=== PATIENT | male | born 1970 | race Caucasian/White ===

== ENCOUNTER 2020-03-26 05:37 | Observation (INO) ==
--- NOTE | 2020-03-26 06:02 | DR.CP ---
HPI Time Seen Time Seen by Provider: 03/26/20 06:01 PCP Primary Care Physician: KENNY HPI Comment HPI Comment: PATIENT IS 49YR OLD MALE IN ER WITH CHEST SHARP IINTERMITTENT LEFT SIDED CHEST PAIN `THAT STARTED THIS AM. PAIN RADIATES TO THE BACK. NOW 3/10 PA WAS HIGHER AT WORK. NO FEVER OR CHEST WALL SYMTOMS. DID NOT TAKE MEDICATION FOR PAIN. COUGHING, NON PRODUCTIVE WITH SLIGHT CONGESTION. DENIES TRAUMA OR DYSURIA. DENIES SIMILAR PAIN IN THE PAST. PAIN ASSOCIATED WITH SOB AND INCEASES WITH EXERTION AND IMPROVE WITH REST. PATIENT DENIES USE OF TOBACCO. Complaint Chief Complaint Doctor Comments: CHEST PAIN. Chief Complaint:: PT AMBULATORY IN ED WITH C/O CHEST PAIN. PT STATES PAIN IS BEHIND LEFT BREAST, SHARP AND COMES AND GOES. PT STATES PAIN IS WORSE ON MOVEMENT AND INHALATION. COVID-19 Coronavirus risk:travel/contact w/high risk person: Yes Has patient experienced Coronavirus symptoms: Yes Coronavirus symptoms experienced: Coughing and Shortness of Breath Reviewed Nurses Notes Review: Yes Source History Provided: Patient Mode of Arrival Mode of Arrival: Ambulatory Timing Onset of Chief Complaint: 03/26/20 Came on: Suddenly Pain: Present Now Duration Duration: Intermittent Duration: Hours Location Location of Chest Pain: Left and Chest Chest Pain Radiation Location: Back Context Onset: At rest Cardiac Risk Factors: None PE Risk Factors: None History of: None Prehospital Care: None Quality Quality: Sharp Severity Severity: Moderate Modifying Factors Worsens: Exertion Impoves: Rest Associated Signs and Symptoms Associated Signs and Symptoms: Shortness of Breath PMH PMH Past Medical History: Yes Past Medical History: Asthma Past Surgical History: Yes Surgical History: Ortho Surgery and Lithotripsy Past Surgical History Comment: LEFT SHOULDER Family History History of Family Medical Conditions: Yes Family Medical History: Hypertension Family Medical History Comment: COPD Social History Does patient currently use any type of tobacco product: Yes Have you used tobacco products in the last 12 months: Yes Type of Tobacco Use: Smokeless Does any household member use tobacco: No Alcohol Use: None Do you use any recreational Drugs:: No Lives With: Significant Other Lives Where: Home Travel Risk Coronavirus risk:travel/contact w/high risk person: Yes Has patient experienced Coronavirus symptoms: Yes Coronavirus symptoms experienced: Coughing and Shortness of Breath Infectious screening In the last 2 months have you had wt loss of >10#?: NO Have you had fever, night sweats or hemotysis?: No Have you traveled outside the country in the last 6 months?: No Isolation: Droplet ROS Review of Systems Constitutional: See HPI, Weakness and Fatigue; negative Fever Eyes: No Symptoms Reported and See HPI; negative Blurred Vision and Diplopia ENTM: See HPI and Nose Congestion; negative Ear Pain, Nose Discharge and Throat Pain Respiratoy: See HPI, Moist Cough and Short of Breath; negative Wheezing Cardiovascular: See HPI, Chest Pain and Edema; negative Palpitations Gastrointestinal/Abdominal: No Symptoms Reported and See HPI; negative Abdominal Pain, Diarrhea, Nausea and Vomiting Genitourinary: No Symptoms Reported and See HPI; negative Dysuria, Frequency and Hematuria Neurological: See HPI and Weakness; negative Headache and Dizziness Musculoskeletal: See HPI and Back Pain; negative Muscle Pain Integumentary: No Symptoms Reported and See HPI; negative Change in Color, Rash and Juandice Hematologic/Lymphatic: No Symptoms Reported and See HPI Endocrine: No Symptoms Reported and See HPI; negative Increased Thirst and Increased Urine Psychiatric: No Symptoms Reported and See HPI All Other Systems: Reviewed and Negative PE Vitals Vitals: Temperature 97.7 F Pulse Rate 94 Respiratory Rate 22 Blood Pressure 116/68 O2 Sat by Pulse Oximetry 98 General Limitations: No Limitations General Appearance: Alert and In No Apparent Distress Head Head Exam: Normal Inspection and Atraumatic Eyes Eye exam: Normal Appearance, PERRL and EOMI; negative Scleral Icterus and Conjunctival Injection ENT ENT Exam: Normal Exam, Normal Oropharynx, Normal External Ear Exam and TM's Normal Bilaterally Chest Chest Inspection: Normal Inspection and Symmetric Chest Wall Rise; negative Tenderness Respiratory Respiratory Exam: Normal Lung Sounds Bilat; negative Accessory Muscle Use, Chest Wall Tenderness and Respiratory Distress Respiratory Exam: Bilateral: Rhonchi and Lower: Rhonchi Cardiovascular Cardiovascular Exam: Regular Rate, Normal Rhythm and Normal Heart Sounds; negative Systolic Murmur and Diastolic Murmur Pulse: Normal Edema: Normal Abdominal Exam Abdominal Exam: Normal Inspection, Normal Bowel Sounds and Soft; negative Tenderness Extremities Extremities Exam: Normal Capillary Refill and Edema; negative Tenderness and Calf Tenderness Back Back Exam: Normal Inspection; negative (R) CVA Tenderness and (L) CVA Tenderness Neurologic Neurological Exam: Alert, Oriented X3 and CN II-XII Intact; negative Motor Sensory Deficit Psychiatric Psychiatric Exam: Normal Affect and Normal Mood Skin Skin Exam: Warm, Dry, Intact and Normal Color MDM Differential Diagnosis Differential Diagnosis: Angina, Chest Wall Pain, Cholelithasis, CHF, Costochondritis, Gastritis, Myocardial Infarction, Pericarditis, Pleuritis, Pancreatitis, Pneumonia, Pneumothorax and Pulmonary Embolus COURSE Treatment Treatment: SEE ORDERS. ASA 324MG CHEWABLE PO IN ER. Consultation Consultation Comments: DISCUSSED PATIENT WITH DR. COX. HE WILL ADMIT PATIENT. ROR Labs Reviewed Laboratory Results Reviewed?: Yes Result Diagrams: 03/26/20 06:02 03/26/20 06:02 Laboratory: WBC 9.8 X10^3/uL (3.6-10.0) 03/26/20 06:02 RBC 5.28 X10^6/uL (4.7-6.0) 03/26/20 06:02 Hgb 15.3 g/dL (13.5-18.0) 03/26/20 06:02 Hct 45.2 % (42.0-54.0) 03/26/20 06:02 MCV 85.7 fL (80.0-100.0) 03/26/20 06:02 MCH 29.1 pg (27.0-34.0) 03/26/20 06:02 MCHC 33.9 g/dL (33.0-35.0) 03/26/20 06:02 RDW 15.0 % (11.6-16.5) 03/26/20 06:02 Plt Count 322 X10^3/uL (150.0-450.0) 03/26/20 06:02 MPV 7.8 fL (7.4-11.0) 03/26/20 06:02 Neut % (Auto) 63.0 % (42.0-75.0) 03/26/20 06:02 Lymph % (Auto) 27.3 % (21.0-51.0) 03/26/20 06:02 [place] % (Auto) 6.0 % (0.0-13.0) 03/26/20 06:02 Eos % (Auto) 2.5 % (0.9-2.9) 03/26/20 06:02 Baso % (Auto) 1.2 % (0.2-1.0) H 03/26/20 06:02 Neut # (Auto) 6.2 x10^3/uL (2.2-4.8) H 03/26/20 06:02 Lymph # (Auto) 2.7 X10^3/uL (1.3-2.9) 03/26/20 06:02 [place] # (Auto) 0.6 x10^3/uL (0.3-0.8) 03/26/20 06:02 Eos # (Auto) 0.2 x10^3/uL (0.0-0.2) 03/26/20 06:02 Baso # (Auto) 0.1 X10^3/uL (0.0-0.1) 03/26/20 06:02 Absolute Nucleated RBC 0.1 /100WBC 03/26/20 06:02 D-Dimer < 100 ng/mL (0-400) 03/26/20 06:02 Sodium 139 mmol/L (136-145) 03/26/20 06:02 Corrected Sodium 141 mmol/L (136-145) 03/26/20 06:02 Potassium 3.4 mmol/L (3.5-5.1) L 03/26/20 06:02 Chloride 102 mmol/L (98-107) 03/26/20 06:02 Carbon Dioxide 31.3 mmol/L (21-32) 03/26/20 06:02 BUN 14 mg/dL (7-18) 03/26/20 06:02 Creatinine 1.21 mg/dL (0.70-1.30) 03/26/20 06:02 Est GFR (MDRD) Af Amer > 60 (>60) 03/26/20 06:02 Est GFR (MDRD) Non-Af > 60 (>60) 03/26/20 06:02 Glucose 195 mg/dL (65-99) H 03/26/20 06:02 Hemoglobin A1c 6.0 % 03/26/20 06:02 Calcium 8.7 mg/dL (8.5-10.1) 03/26/20 06:02 Corrected Calcium TNP 03/26/20 06:02 Total Bilirubin 0.20 mg/dL (0.2-1.0) 03/26/20 06:02 AST 14 Units/L (15-37) L 03/26/20 06:02 ALT 36 Units/L (12-78) 03/26/20 06:02 Alkaline Phosphatase 124 Units/L (46-116) H 03/26/20 06:02 Creatine Kinase 91 Units/L (39-308) 03/26/20 06:02 CK-MB (CK-2) < 1.0 ng/mL (0-4.0) 03/26/20 06:02 CK/CKMB % Calc 1.1 % (<4) 03/26/20 06:02 Troponin I < 0.02 ng/mL (0-1.5) 03/26/20 06:02 B-Natriuretic Peptide < 5.0 pg/mL (0-79) 03/26/20 06:02 Total Protein 7.4 g/dL (6.4-8.2) 03/26/20 06:02 Albumin 3.8 g/dL (3.4-5.0) 03/26/20 06:02 Globulin 3.6 g/dL (2.5-4.5) 03/26/20 06:02 Albumin/Globulin Ratio 1.1 Ratio (1.1-2.1) 03/26/20 06:02 Amylase 39 Units/L (25-115) 03/26/20 06:02 Lipase 163 Units/L (73-393) 03/26/20 06:02 Specimen Type Clean catch urine 03/26/20 06:36 Urine Color Yellow (YELLOW) 03/26/20 06:36 Urine Appearance Slightly hazy (CLEAR) 03/26/20 06:36 Urine pH 6.0 (5.0 - 8.0) 03/26/20 06:36 Ur Specific [place] 1.025 (1.000-1.030) 03/26/20 06:36 Urine Protein 2+ (NEGATIVE) 03/26/20 06:36 Urine Glucose (UA) 1+ (NEGATIVE) 03/26/20 06:36 Urine Ketones Negative (NEGATIVE) 03/26/20 06:36 Urine Occult Blood Negative (NEGATIVE) 03/26/20 06:36 Urine Nitrite Negative (NEGATIVE) 03/26/20 06:36 Urine Bilirubin Negative (NEGATIVE) 03/26/20 06:36 Urine Urobilinogen Normal (NORMAL) 03/26/20 06:36 Ur Leukocyte Esterase Negative (NEGATIVE) 03/26/20 06:36 Urine RBC None seen /HPF (0-3) 03/26/20 06:36 Urine WBC 0-2 /HPF (0-5) 03/26/20 06:36 Ur Squamous Epith Cells Rare /HPF (NEGATIVE) 03/26/20 06:36 Urine Bacteria Negative /HPF (NEGATIVE) 03/26/20 06:36 Urine Mucus Few /HPF (NEGATIVE) 03/26/20 06:36 Ur Culture Indicated? No/not indicated 03/26/20 06:36 XRAY XRAY Interpreted by: Radiologist and Self (NO ACUTE INFILTRATE.) EKG Rate: 99 [place]: Normal Rhythm: NSR Block: None Hypertrophy: None ST: Normal Opioid Opioid Risk Tool Age (Higinio box if 16-45): No History of Preadolescent Sexual Abuse: No Total: 0 Total Score Risk Category: Low Risk Copyright: Jimi DAUGHERTY predicting aberrant behaviors Diagnosis Discharge Problem: Hypokalemia, Acute dyspnea Chest pain Qualifiers: Chest pain type: precordial pain Qualified Code(s): R07.2 - Precordial pain Edema Qualifiers: Edema type: localized Qualified Code(s): R60.0 - Localized edema
[2020-03-26 06:18] LABS: BASOPHILS # (AUTO) 0.1 X10^3/uL (0.0-0.1); BASOPHILS % (AUTO) 1.2 % (0.2-1.0); EOSINOPHILS # (AUTO) 0.2 x10^3/uL (0.0-0.2); EOSINOPHILS % (AUTO) 2.5 % (0.9-2.9); HEMATOCRIT 45.2 % (42.0-54.0); HEMOGLOBIN 15.3 g/dL (13.5-18.0); LYMPHOCYTES # (AUTO) 2.7 X10^3/uL (1.3-2.9); LYMPHOCYTES % (AUTO) 27.3 % (21.0-51.0); MEAN CORPUSCULAR HEMOGLOBIN 29.1 pg (27.0-34.0); MEAN CORPUSCULAR HGB CONC 33.9 g/dL (33.0-35.0); MEAN CORPUSCULAR VOLUME 85.7 fL (80.0-100.0); MEAN PLATELET VOLUME 7.8 fL (7.4-11.0); MONOCYTES # (AUTO) 0.6 x10^3/uL (0.3-0.8); NEUTROPHILS # (AUTO) 6.2 x10^3/uL (2.2-4.8); PLATELET COUNT 322 X10^3/uL (150.0-450.0); RED BLOOD COUNT 5.28 X10^6/uL (4.7-6.0); WHITE BLOOD COUNT 9.8 X10^3/uL (3.6-10.0)
[2020-03-26 06:31] LABS: BLOOD UREA NITROGEN 14 mg/dL (7-18); CALCIUM 8.7 mg/dL (8.5-10.1); CARBON DIOXIDE 31.3 mmol/L (21-32); CHLORIDE 102 mmol/L (98-107); COR NA(FOR HYPERGLY) 141 mmol/L (136-145); CREATININE 1.21 mg/dL (0.70-1.30); SODIUM 139 mmol/L (136-145); TROPONIN I < 0.02 ng/mL (0-1.5); eGFR NON BLACK RACES > 60 (>60)
[2020-03-26 06:36] LABS: ALANINE AMINOTRANSFERASE 36 Units/L (12-78); ALBUMIN 3.8 g/dL (3.4-5.0); ALKALINE PHOSPHATASE 124 Units/L (46-116); ASPARTATE AMINO TRANSFERASE 14 Units/L (15-37); CKMB % 1.1 % (<4); CREATINE KINASE 91 Units/L (39-308); CREATINE KINASE MB < 1.0 ng/mL (0-4.0); TOTAL PROTEIN 7.4 g/dL (6.4-8.2)
--- NOTE | 2020-03-26 06:36 | RAD ---
HISTORYChest pain, shortness of breathSTUDYCHEST, 1 VIEWCOMPARISONNoneFINDINGSThe heart is within normal limits in size. The mal are normal. The lungs are well inflated and free of acute alveolar infiltrates. No pleural effusions are identified. Bony thorax is unremarkable.IMPRESSIONNo significant abnormality identifiedElectronically signed by: ORLANDO HOLLAND (March 26, 2020 06:34:25)
[2020-03-26 06:57] LABS: BILIRUBIN,URINE NEGATIVE (NEGATIVE); BLOOD/HEMOGLOBIN,URINE NEGATIVE (NEGATIVE); GLUCOSE, URINE 1+ (NEGATIVE); KETONES,URINE NEGATIVE (NEGATIVE); LEUKOCYTE ESTERASE ,URINE NEGATIVE (NEGATIVE); NITRITES,URINE NEGATIVE (NEGATIVE); PROTEIN,URINE 2+ (NEGATIVE); UROBILINOGEN,URINE NORMAL (NORMAL)
[2020-03-26 06:58] LABS: APPEARANCE,URINE SLIGHTLY HAZY (CLEAR); COLOR,URINE YELLOW (YELLOW)
[2020-03-26 07:05] LABS: BACTERIA,URINE NEGATIVE /HPF (NEGATIVE); MUCUS,URINE FEW /HPF (NEGATIVE); RBC,URINE NONE SEEN /HPF (0-3); SQUAMOUS EPITHELIAL CELL,UR RARE /HPF (NEGATIVE)
[2020-03-26] MEDS ORDERED: ASPIRIN 81 MG CHEWTAB ONE ×2 (07:45→07:47)
[2020-03-26] MEDS ORDERED: NITROGLYCERIN IV PREMIX 50 MG 50 MG/250 ML BAG IV PRN (07:50)
[2020-03-26 08:03] LABS: AMYLASE 39 Units/L (25-115); LIPASE 163 Units/L (73-393)
[2020-03-26] MEDS ORDERED: K-DUR TAB 20 MEQ PO ONE (08:40)
[2020-03-26] MEDS ORDERED: ASPIRIN PO SCH (09:00)
[2020-03-26] MEDS ORDERED: ASPIRIN 81 MG CHEWTAB PO SCH (09:00)
[2020-03-26 09:13] VITALS: BMI 34.7
[2020-03-26 09:17] LABS: ABG ALLEN TEST POS; ABG BASE EXCESS 3.8 mmol/L (-2.0-2.0); ABG HCO3 29.2 mmol/L (22-26)
[2020-03-26] MEDS: NS 1000 ML 1,000 ML IV SCH ×2 (09:32→20:16)
[2020-03-26] MEDS: PREDNISONE TAB 20 MG PO SCH (09:54)
[2020-03-26] MEDS: DUONEB 0.5 MG/3 MG (3 mL) NEB SCH ×3 (09:56→17:34)
--- NOTE | 2020-03-26 10:06 | DR.H&P ---
H&P History & Physical for Day of: H&P Date: 03/26/20 Chief Complaint Chief Complaint: chest pain, SOB Allergies Allergies Allergy/AdvReac Type Severity Reaction Status Date / Time codeine Allergy Verified 03/26/20 05:48 History of Present Illness History of Present Illness: Patient presents with left sided chest pain and SOB. He states he has been having chest pain in the morning for the past week, usually lasts 10-15 mins and resolve. It does not radiate, worse with movement, tender to touch and associated with SOB. Denies N/V/D or diaphoresis. He states he had an episode yesterday and then one this morning which was worse than before and lasted longer. He states the pain lasted 30-45 mins. He took 2 aleve at home. He states the chest pain has almost resolved now. His sats were in the 70s on admission, currently on 2L NC. Denies fever or chills, no sick contact. He had a stress test Jul 2019 which was normal, normal ECHO. Hx of tobacco use, quit 3 yrs ago. Patient reports having a hx of lung nodule in the past but never had it worked up. ED work-up: CXR: negative EKG: NSR Trop x 1 (-), K:3.4 D-dimer (-) Plan: trend troponins, check ABG, COVID swab, CT-PE, start duonebs, prednisone Past Medical History Past Medical History: Arthritis and Asthma Past Surgical History Surgical History: Tonsillectomy and Lithotripsy Family History Family Medical History: Hypertension Social History Does patient currently use any type of tobacco product: Yes Have you used tobacco products in the last 12 months: No Type of Tobacco Use: Smokeless Does any household member use tobacco: No Alcohol Use: None Drug Use: None Medications Home Medications: codeine Allergy (Verified 03/26/20 05:48) CONTINUE taking the following medications cyclobenzaprine 10 mg PO HS 03/26/20 [History] gabapentin 100 mg PO HS 03/26/20 [History] naproxen 500 mg PO DAILY PRN 03/26/20 [History] tamsulosin [Flomax] 0.4 mg PO HS 03/26/20 [History] tramadol 100 mg PO BID 03/26/20 [History] Labs Result Diagrams: 03/26/20 06:02 03/26/20 06:02 Labs: Laboratory WBC 9.8 X10^3/uL (3.6-10.0) 03/26/20 06:02 RBC 5.28 X10^6/uL (4.7-6.0) 03/26/20 06:02 Hgb 15.3 g/dL (13.5-18.0) 03/26/20 06:02 Hct 45.2 % (42.0-54.0) 03/26/20 06:02 MCV 85.7 fL (80.0-100.0) 03/26/20 06:02 MCH 29.1 pg (27.0-34.0) 03/26/20 06:02 MCHC 33.9 g/dL (33.0-35.0) 03/26/20 06:02 RDW 15.0 % (11.6-16.5) 03/26/20 06:02 Plt Count 322 X10^3/uL (150.0-450.0) 03/26/20 06:02 MPV 7.8 fL (7.4-11.0) 03/26/20 06:02 Neut % (Auto) 63.0 % (42.0-75.0) 03/26/20 06:02 Lymph % (Auto) 27.3 % (21.0-51.0) 03/26/20 06:02 [place] % (Auto) 6.0 % (0.0-13.0) 03/26/20 06:02 Eos % (Auto) 2.5 % (0.9-2.9) 03/26/20 06:02 Baso % (Auto) 1.2 % (0.2-1.0) H 03/26/20 06:02 Neut # (Auto) 6.2 x10^3/uL (2.2-4.8) H 03/26/20 06:02 Lymph # (Auto) 2.7 X10^3/uL (1.3-2.9) 03/26/20 06:02 [place] # (Auto) 0.6 x10^3/uL (0.3-0.8) 03/26/20 06:02 Eos # (Auto) 0.2 x10^3/uL (0.0-0.2) 03/26/20 06:02 Baso # (Auto) 0.1 X10^3/uL (0.0-0.1) 03/26/20 06:02 Absolute Nucleated RBC 0.1 /100WBC 03/26/20 06:02 D-Dimer < 100 ng/mL (0-400) 03/26/20 06:02 Sample Site Lr 03/26/20 09:11 ABG pH 7.410 (7.35-7.45) 03/26/20 09:11 ABG pCO2 46.0 mmHg (35.0-45.0) H 03/26/20 09:11 ABG pO2 72.0 mmHg (80.0-100.0) L 03/26/20 09:11 ABG HCO3 29.2 mmol/L (22-26) H 03/26/20 09:11 ABG O2 Saturation 94.0 % (90-100) 03/26/20 09:11 ABG Base Excess 3.8 mmol/L (-2.0-2.0) H 03/26/20 09:11 Vern Test Pos 03/26/20 09:11 A-a Gradient 20.0 mmHg 03/26/20 09:11 FiO2 21.0 03/26/20 09:11 Blood Gas Comments Mireille well cb 03/26/20 09:11 Sodium 139 mmol/L (136-145) 03/26/20 06:02 Corrected Sodium 141 mmol/L (136-145) 03/26/20 06:02 Potassium 3.4 mmol/L (3.5-5.1) L 03/26/20 06:02 Chloride 102 mmol/L (98-107) 03/26/20 06:02 Carbon Dioxide 31.3 mmol/L (21-32) 03/26/20 06:02 BUN 14 mg/dL (7-18) 03/26/20 06:02 Creatinine 1.21 mg/dL (0.70-1.30) 03/26/20 06:02 Est GFR (MDRD) Af Amer > 60 (>60) 03/26/20 06:02 Est GFR (MDRD) Non-Af > 60 (>60) 03/26/20 06:02 Glucose 195 mg/dL (65-99) H 03/26/20 06:02 Hemoglobin A1c 6.0 % 03/26/20 06:02 Calcium 8.7 mg/dL (8.5-10.1) 03/26/20 06:02 Corrected Calcium TNP 03/26/20 06:02 Total Bilirubin 0.20 mg/dL (0.2-1.0) 03/26/20 06:02 AST 14 Units/L (15-37) L 03/26/20 06:02 ALT 36 Units/L (12-78) 03/26/20 06:02 Alkaline Phosphatase 124 Units/L (46-116) H 03/26/20 06:02 Creatine Kinase 91 Units/L (39-308) 03/26/20 06:02 CK-MB (CK-2) < 1.0 ng/mL (0-4.0) 03/26/20 06:02 CK/CKMB % Calc 1.1 % (<4) 03/26/20 06:02 Troponin I < 0.02 ng/mL (0-1.5) 03/26/20 06:02 B-Natriuretic Peptide < 5.0 pg/mL (0-79) 03/26/20 06:02 Total Protein 7.4 g/dL (6.4-8.2) 03/26/20 06:02 Albumin 3.8 g/dL (3.4-5.0) 03/26/20 06:02 Globulin 3.6 g/dL (2.5-4.5) 03/26/20 06:02 Albumin/Globulin Ratio 1.1 Ratio (1.1-2.1) 03/26/20 06:02 Amylase 39 Units/L (25-115) 03/26/20 06:02 Lipase 163 Units/L (73-393) 03/26/20 06:02 Specimen Type Clean catch urine 03/26/20 06:36 Urine Color Yellow (YELLOW) 03/26/20 06:36 Urine Appearance Slightly hazy (CLEAR) 03/26/20 06:36 Urine pH 6.0 (5.0 - 8.0) 03/26/20 06:36 Ur Specific [place] 1.025 (1.000-1.030) 03/26/20 06:36 Urine Protein 2+ (NEGATIVE) 03/26/20 06:36 Urine Glucose (UA) 1+ (NEGATIVE) 03/26/20 06:36 Urine Ketones Negative (NEGATIVE) 03/26/20 06:36 Urine Occult Blood Negative (NEGATIVE) 03/26/20 06:36 Urine Nitrite Negative (NEGATIVE) 03/26/20 06:36 Urine Bilirubin Negative (NEGATIVE) 03/26/20 06:36 Urine Urobilinogen Normal (NORMAL) 03/26/20 06:36 Ur Leukocyte Esterase Negative (NEGATIVE) 03/26/20 06:36 Urine RBC None seen /HPF (0-3) 03/26/20 06:36 Urine WBC 0-2 /HPF (0-5) 03/26/20 06:36 Ur Squamous Epith Cells Rare /HPF (NEGATIVE) 03/26/20 06:36 Urine Bacteria Negative /HPF (NEGATIVE) 03/26/20 06:36 Urine Mucus Few /HPF (NEGATIVE) 03/26/20 06:36 Ur Culture Indicated? No/not indicated 03/26/20 06:36 Review of Systems Constitutional: No Symptoms Reported Eyes: No Symptoms Reported ENT: No Symptoms Reported Respiratory: Shortness of Breath, SOB with Excertion and Pleuritic Pain Cardiovascular: Chest Pain Gastrointestinal: No Symptoms Reported Genitourinary: No Symptoms Reported Musculoskeletal: Shoulder Pain Skin: No Symptoms Reported Neurological: No Symptoms Reported Physical Exam Vital Signs: Temperature 97.7 F Pulse Rate [Left Radial] 83 Pulse Rate 85 Respiratory Rate 22 Blood Pressure [Left Arm] 172/92 Blood Pressure 133/87 O2 Sat by Pulse Oximetry 94 Oriented: Normal Eyes: Normal Ear: Normal Nose: Normal Throat: Normal Respiratory: Clear Throughout Cardiovascular: Normal Auscultation: Bowel Sounds: Normal Palpation: Normal Tenderness: Normal Skin: Normal Musculoskeletal: Normal Psychiatric: Normal Mood Description: Calm Affect: Normal Speech Pattern: Clear and Appropriate Assessment/Plan (1) Acute respiratory failure with hypoxia: Status: Acute (2) Chest pain, rule out acute myocardial infarction: Status: Acute (3) Hypokalemia: Status: Acute (4) Obesity (BMI 30.0-34.9): Status: Acute (5) Arthritis: Status: Acute Review H&P Reviewed: Yes Patient was examined?: Yes
[2020-03-26] MEDS: ULTRAM PO SCH ×2 (11:03→20:09)
[2020-03-26 12:34] LABS: CKMB % 1.1 % (<4); CREATINE KINASE 89 Units/L (39-308); CREATINE KINASE MB < 1.0 ng/mL (0-4.0); TROPONIN I < 0.02 ng/mL (0-1.5)
[2020-03-26] MEDS ORDERED: NS 250 ML IV 250 ML IV ONE (14:23)
--- NOTE | 2020-03-26 14:58 | CT ---
HISTORY:Hypoxia, shortness of breath, chest painStudy: CTA chestComparison:NoneTechnique: Multiple axial images of the chest were obtained after the administration of IV contrast. 3D reconstructions were performed utilizing radial maximum intensity projection imaging. Dose reduction techniques including Automated Exposure Control (AEC) and adjustment of mA and kV were utilized.Findings:Contrast opacification of the pulmonary arteries is adequate to the level of the segmental branches. No evidence of acute pulmonary emboli . Normal appearance of the heart and pericardium . The aorta appears normal in course and caliber. There are paraseptal emphysematous changes present primarily at the lung apices. There is a 5 mm intrafissural lymph node in the right middle lobe axial image 49 and 3.5 mm intrafissural lymph node in the left lung axial image 45. There is a 5 mm subpleural nodule at the medial right lung base axial image 68. Airways are patient. There is mildly prominent right paratracheal lymph node measuring 1.6 x 1.5 centimeters. No other adenopathy is identified. No infiltrate, effusion or pneumothorax.The soft tissues and osseous structures appear intact . The visualized portions of the upper abdomen are grossly unremarkable. There is mild fatty infiltration of the liver.IMPRESSION:1. No acute pulmonary emboli.2. Paraseptal emphysematous changes at the lung apices.3. 5 mm subpleural right lower lobe pulmonary nodule. Optional [address] can be performed for re-evaluation if the patient is considered high risk. Additional nodules also noted compatible with benign intrafissural lymph nodes.Electronically signed by: GIBSON NARANJO (March 26, 2020 14:56:55)
[2020-03-26] MEDS ORDERED: NAPROSYN PO PRN (16:41)
[2020-03-26 19:03] LABS: CREATINE KINASE 95 Units/L (39-308); CREATINE KINASE MB < 1.0 ng/mL (0-4.0); TROPONIN I < 0.02 ng/mL (0-1.5)
[2020-03-26 19:15] LABS: CKMB % 1.1 % (<4)
[2020-03-26] MEDS ORDERED: FLOMAX PO SCH (21:00)
[2020-03-26] MEDS ORDERED: FLEXERIL TAB 10 MG PO SCH (21:00)
[2020-03-26] MEDS ORDERED: NEURONTIN CAP 100 MG PO SCH (21:00)
[2020-03-27] MEDS: DUONEB 0.5 MG/3 MG (3 mL) NEB SCH ×2 (00:58→06:20)
[2020-03-27] MEDS: NS 1000 ML 1,000 ML IV SCH (05:19)
[2020-03-27 06:31] LABS: BASOPHILS # (AUTO) 0.1 X10^3/uL (0.0-0.1); BASOPHILS % (AUTO) 0.5 % (0.2-1.0); EOSINOPHILS # (AUTO) 0.2 x10^3/uL (0.0-0.2); HEMATOCRIT 42.1 % (42.0-54.0); LYMPHOCYTES # (AUTO) 3.9 X10^3/uL (1.3-2.9); LYMPHOCYTES % (AUTO) 31.6 % (21.0-51.0); MEAN CORPUSCULAR HEMOGLOBIN 29.1 pg (27.0-34.0); MEAN CORPUSCULAR HGB CONC 33.3 g/dL (33.0-35.0); MEAN CORPUSCULAR VOLUME 87.4 fL (80.0-100.0); MEAN PLATELET VOLUME 8.4 fL (7.4-11.0); MONOCYTES % (AUTO) 7.8 % (0.0-13.0); NEUTROPHILS # (AUTO) 7.1 x10^3/uL (2.2-4.8); NEUTROPHILS % (AUTO) 58.1 % (42.0-75.0); PLATELET COUNT 283 X10^3/uL (150.0-450.0); RED BLOOD COUNT 4.82 X10^6/uL (4.7-6.0); RED CELL DISTRIBUTION WIDTH 15.4 % (11.6-16.5); WHITE BLOOD COUNT 12.3 X10^3/uL (3.6-10.0)
[2020-03-27 06:42] LABS: ALANINE AMINOTRANSFERASE 32 Units/L (12-78); ALBUMIN 3.4 g/dL (3.4-5.0); ALKALINE PHOSPHATASE 108 Units/L (46-116); ASPARTATE AMINO TRANSFERASE 13 Units/L (15-37); BLOOD UREA NITROGEN 14 mg/dL (7-18); CALCIUM 8.2 mg/dL (8.5-10.1); CARBON DIOXIDE 28.3 mmol/L (21-32); CHLORIDE 105 mmol/L (98-107); CHOL/HDL RATIO 5.2 (0.0-5.0); CHOLESTEROL 140 mg/dL (0-200); CREATININE 1.03 mg/dL (0.70-1.30); HDL CHOLESTEROL 27 mg/dL (40-60); MAGNESIUM 1.8 mg/dL (1.7-2.9); SODIUM 139 mmol/L (136-145); TOTAL PROTEIN 6.6 g/dL (6.4-8.2); TRIGLYCERIDES 129 mg/dL (0-150); eGFR NON BLACK RACES > 60 (>60)
--- NOTE | 2020-03-27 08:25 | W.DIS.FURT ---
Summary of Discharge Discharge Summary of Date Date of Exam: 03/27/20 Admission Date Date of Admission: 03/26/20 Admission Diagnosis Hospital Course: Patient presents with left sided chest pain and SOB. He states he has been having chest pain in the morning for the past week, usually lasts 10-15 mins and resolve. It does not radiate, worse with movement, tender to touch and associated with SOB. Denies N/V/D or diaphoresis. He states he had an episode yesterday and then one this morning which was worse than before and lasted longer. He states the pain lasted 30-45 mins. He took 2 aleve at home. He states the chest pain has almost resolved now. His sats were in the 70s on admission, currently on 2L NC. Denies fever or chills, no sick contact. He had a stress test Jul 2019 which was normal, normal ECHO. Hx of tobacco use, quit 3 yrs ago. Patient reports having a hx of lung nodule in the past but never had it worked up. ED work-up: CXR: negative EKG: NSR. Patient was admitted on telemetry for monitoring. Cardiac profile x 3 negative, no EKG changes. ABG was done due to SOB and showed hypoxia. COVID-19 was negative. Patient was started on duonebs and prednisone. CT-PE was done and it did not show PE, did show chronic lung nodule which is stable. Patient had no further episodes of chest pain. RT was consulted and patient did not require oxygen on discharge, sats > 92% on RA. He was stable for discharge and will follow up with PCP as scheduled. Vital Signs: Vital Signs (72 hours) 03/26/20 05:42 03/26/20 06:10 03/26/20 07:54 Temperature 97.7 F Pulse Rate 106 H 94 H 85 Pulse Rate [Left Radial] Respiratory Rate 24 22 20 Blood Pressure 147/75 116/68 133/87 Blood Pressure [Left Arm] O2 Sat by Pulse Oximetry 96 98 98 03/26/20 08:00 03/26/20 11:03 03/26/20 11:21 Temperature 97.7 F Pulse Rate 80 Pulse Rate [Left Radial] 83 Respiratory Rate 22 20 Blood Pressure Blood Pressure [Left Arm] 172/92 O2 Sat by Pulse Oximetry 94 L 95 03/26/20 12:00 03/26/20 12:03 03/26/20 16:00 Temperature 98.1 F 97.5 F L Pulse Rate Pulse Rate [Left Radial] 87 71 Respiratory Rate 18 22 18 Blood Pressure Blood Pressure [Left Arm] 137/68 140/74 O2 Sat by Pulse Oximetry 97 96 03/26/20 17:35 03/26/20 19:59 03/26/20 20:09 Temperature 97.5 F L Pulse Rate 86 Pulse Rate [Left Radial] 79 Respiratory Rate 18 20 Blood Pressure Blood Pressure [Left Arm] 134/72 O2 Sat by Pulse Oximetry 96 97 03/26/20 21:09 03/27/20 00:00 03/27/20 00:58 Temperature 97.8 F Pulse Rate 85 Pulse Rate [Left Radial] 74 Respiratory Rate 20 16 Blood Pressure Blood Pressure [Left Arm] 114/58 O2 Sat by Pulse Oximetry 98 96 03/27/20 03:35 03/27/20 06:21 Temperature 97.3 F L Pulse Rate 80 Pulse Rate [Left Radial] 66 Respiratory Rate 16 Blood Pressure Blood Pressure [Left Arm] 113/56 O2 Sat by Pulse Oximetry 99 95 Labs: Laboratory Last Values WBC 12.3 X10^3/uL (3.6-10.0) H 03/27/20 05:26 RBC 4.82 X10^6/uL (4.7-6.0) 03/27/20 05:26 Hgb 14.0 g/dL (13.5-18.0) 03/27/20 05:26 Hct 42.1 % (42.0-54.0) 03/27/20 05:26 MCV 87.4 fL (80.0-100.0) 03/27/20 05:26 MCH 29.1 pg (27.0-34.0) 03/27/20 05:26 MCHC 33.3 g/dL (33.0-35.0) 03/27/20 05:26 RDW 15.4 % (11.6-16.5) 03/27/20 05:26 Plt Count 283 X10^3/uL (150.0-450.0) 03/27/20 05:26 MPV 8.4 fL (7.4-11.0) 03/27/20 05:26 Neut % (Auto) 58.1 % (42.0-75.0) 03/27/20 05:26 Lymph % (Auto) 31.6 % (21.0-51.0) 03/27/20 05:26 [place] % (Auto) 7.8 % (0.0-13.0) 03/27/20 05:26 Eos % (Auto) 2.0 % (0.9-2.9) 03/27/20 05:26 Baso % (Auto) 0.5 % (0.2-1.0) 03/27/20 05:26 Neut # (Auto) 7.1 x10^3/uL (2.2-4.8) H 03/27/20 05:26 Lymph # (Auto) 3.9 X10^3/uL (1.3-2.9) H 03/27/20 05:26 [place] # (Auto) 1.0 x10^3/uL (0.3-0.8) H 03/27/20 05:26 Eos # (Auto) 0.2 x10^3/uL (0.0-0.2) 03/27/20 05:26 Baso # (Auto) 0.1 X10^3/uL (0.0-0.1) 03/27/20 05:26 Absolute Nucleated RBC 0.0 /100WBC 03/27/20 05:26 D-Dimer < 100 ng/mL (0-400) 03/26/20 06:02 Sample Site Lr 03/26/20 09:11 ABG pH 7.410 (7.35-7.45) 03/26/20 09:11 ABG pCO2 46.0 mmHg (35.0-45.0) H 03/26/20 09:11 ABG pO2 72.0 mmHg (80.0-100.0) L 03/26/20 09:11 ABG HCO3 29.2 mmol/L (22-26) H 03/26/20 09:11 ABG O2 Saturation 94.0 % (90-100) 03/26/20 09:11 ABG Base Excess 3.8 mmol/L (-2.0-2.0) H 03/26/20 09:11 Vern Test Pos 03/26/20 09:11 A-a Gradient 20.0 mmHg 03/26/20 09:11 FiO2 21.0 03/26/20 09:11 Blood Gas Comments Mireille well cb 03/26/20 09:11 Sodium 139 mmol/L (136-145) 03/27/20 05:26 Corrected Sodium TNP 03/27/20 05:26 Potassium 4.0 mmol/L (3.5-5.1) 03/27/20 05:26 Chloride 105 mmol/L (98-107) 03/27/20 05:26 Carbon Dioxide 28.3 mmol/L (21-32) 03/27/20 05:26 BUN 14 mg/dL (7-18) 03/27/20 05:26 Creatinine 1.03 mg/dL (0.70-1.30) 03/27/20 05:26 Est GFR (MDRD) Af Amer > 60 (>60) 03/27/20 05:26 Est GFR (MDRD) Non-Af > 60 (>60) 03/27/20 05:26 Glucose 107 mg/dL (65-99) H 03/27/20 05:26 Hemoglobin A1c 6.0 % 03/26/20 06:02 Calcium 8.2 mg/dL (8.5-10.1) L 03/27/20 05:26 Corrected Calcium TNP 03/27/20 05:26 Magnesium 1.8 mg/dL (1.7-2.9) 03/27/20 05:26 Total Bilirubin 0.20 mg/dL (0.2-1.0) 03/27/20 05:26 AST 13 Units/L (15-37) L 03/27/20 05:26 ALT 32 Units/L (12-78) 03/27/20 05:26 Alkaline Phosphatase 108 Units/L (46-116) 03/27/20 05:26 Creatine Kinase 95 Units/L (39-308) 03/26/20 18:10 CK-MB (CK-2) < 1.0 ng/mL (0-4.0) 03/26/20 18:10 CK/CKMB % Calc 1.1 % (<4) 03/26/20 18:10 Troponin I < 0.02 ng/mL (0-1.5) 03/26/20 18:10 B-Natriuretic Peptide < 5.0 pg/mL (0-79) 03/26/20 06:02 Total Protein 6.6 g/dL (6.4-8.2) 03/27/20 05:26 Albumin 3.4 g/dL (3.4-5.0) 03/27/20 05:26 Globulin 3.2 g/dL (2.5-4.5) 03/27/20 05:26 Albumin/Globulin Ratio 1.1 Ratio (1.1-2.1) 03/27/20 05:26 Triglycerides 129 mg/dL (0-150) 03/27/20 05:26 Cholesterol 140 mg/dL (0-200) 03/27/20 05:26 LDL Cholesterol, Calc 87 mg/dL (0-100) 03/27/20 05:26 HDL Cholesterol 27 mg/dL (40-60) L 03/27/20 05:26 Cholesterol/HDL Ratio 5.2 (0.0-5.0) H 03/27/20 05:26 Amylase 39 Units/L (25-115) 03/26/20 06:02 Lipase 163 Units/L (73-393) 03/26/20 06:02 Specimen Type Clean catch urine 03/26/20 06:36 Urine Color Yellow (YELLOW) 03/26/20 06:36 Urine Appearance Slightly hazy (CLEAR) 03/26/20 06:36 Urine pH 6.0 (5.0 - 8.0) 03/26/20 06:36 Ur Specific [place] 1.025 (1.000-1.030) 03/26/20 06:36 Urine Protein 2+ (NEGATIVE) 03/26/20 06:36 Urine Glucose (UA) 1+ (NEGATIVE) 03/26/20 06:36 Urine Ketones Negative (NEGATIVE) 03/26/20 06:36 Urine Occult Blood Negative (NEGATIVE) 03/26/20 06:36 Urine Nitrite Negative (NEGATIVE) 03/26/20 06:36 Urine Bilirubin Negative (NEGATIVE) 03/26/20 06:36 Urine Urobilinogen Normal (NORMAL) 03/26/20 06:36 Ur Leukocyte Esterase Negative (NEGATIVE) 03/26/20 06:36 Urine RBC None seen /HPF (0-3) 03/26/20 06:36 Urine WBC 0-2 /HPF (0-5) 03/26/20 06:36 Ur Squamous Epith Cells Rare /HPF (NEGATIVE) 03/26/20 06:36 Urine Bacteria Negative /HPF (NEGATIVE) 03/26/20 06:36 Urine Mucus Few /HPF (NEGATIVE) 03/26/20 06:36 Ur Culture Indicated? No/not indicated 03/26/20 06:36 SARS-CoV-2 (PCR) Negative (NEGATIVE) 03/26/20 10:10 Reason For Visit: CHEST PAIN RULE OUT NM,SOB Discharge Date Discharge Date: 03/27/20 Discharge Diagnosis All Active Problems (Updated 03/26/20 @ 16:55 by CHING DRUMMOND) Chest pain (Acute) Hypokalemia (Acute) Acute dyspnea (Acute) Edema (Acute) Hypokalemia (Acute) Acute respiratory failure with hypoxia (Acute) Arthritis (Acute) Obesity (BMI 30.0-34.9) (Acute) Chest pain, rule out acute myocardial infarction (Acute) Plan of Treatment: Continue with present treatment and follow up plan. Pt is to keep follow up appointment as instructed and take medications as ordered. Discharge Medications Discharge Medications: codeine Allergy (Verified 03/26/20 05:48) CONTINUE taking the following medications cyclobenzaprine 10 mg PO HS 03/26/20 [History] gabapentin 100 mg PO HS 03/26/20 [History] naproxen 500 mg PO DAILY PRN 03/26/20 [History] tamsulosin [Flomax] 0.4 mg PO HS 03/26/20 [History] tramadol 100 mg PO BID 03/26/20 [History] New Prescriptions albuterol sulfate 2 puff IN Q6H PRN #6.7 g 03/27/20 [Rx] azithromycin See Rx Instructions .ROUTE .COMPLEX #6 tab 03/27/20 [Rx] ipratropium-albuterol 3 ml NEB Q6RESP 30 Days #60 packet 03/27/20 [Rx] nebulizers #1 ea 03/27/20 [Rx] prednisone 20 mg PO DAILY 5 Days #5 tab 03/27/20 [Rx] Follow up and Referral Follow Up: 4 Weeks (PCP) Discharge Disposition Assessment: Stable no acute distress noted at time of discharge. Discharge Disposition: Home Discharge Condition: Stable
[2020-03-27] MEDS ORDERED: ASPIRIN EC 81 MG PO ONE (08:42)
[2020-03-27] MEDS: PREDNISONE TAB 20 MG PO SCH (08:56)
[2020-03-27] MEDS: ULTRAM PO SCH (08:56)
[2020-03-27] MEDS ORDERED: ASPIRIN PO SCH (09:00)
[2020-03-27 10:33] VITALS: BP 133/87
== END 2020-03-27 11:45 | disposition home or self-care (01) ==
LOC: MED/SURG 05:39 → ER 05:39 → MED/SURG 07:55
PROVIDERS: ADMIT Internal Medicine; ATTEND Internal Medicine
DX: R60.0 Localized edema; J96.01 Acute respiratory failure with hypoxia; Z11.59 Encounter for screening for other viral diseases; E87.6 Hypokalemia; R94.31 Abnormal electrocardiogram [ECG] [EKG]; R07.2 Precordial pain; E66.9 Obesity, unspecified
CPT/HCPCS: 36415; 36600; 71010; 71045; 71275; 80053; 80061; 81001; 82150; 82550; 82553; 82803; 83036; 83690; 83735; 83880; 84484; 85025; 85378; 87635; 93005; 94640; 94760; 96360; 96361; 96365; 96374; 99284; A4222; G0378; J7030; J7512; J7620